=== PATIENT | female | born 1990 | race Caucasian/White ===

== ENCOUNTER 2023-03-28 23:13 | Emergency (ER) | payer BC ==
[~2023-03-28] VITALS: Ht 165.1 cm; Wt 65.8 kg
[2023-03-28 23:50] VITALS: BP 129/85
--- NOTE | 2023-03-28 23:50 | NUR ---
C/O right index finger injury from closing car door on it, a/o x 4. on room air. Placed comfortably on bed.
--- NOTE | 2023-03-29 02:17 | NUR ---
Patient discharged to home in stable condition. Written and verbal after care instructions given. Patient verbalizes understanding of instruction.
== END 2023-03-29 02:17 | disposition home or self-care (01) ==
LOC: ER 23:15
DX: S61.210A Laceration without foreign body of right index finger without damage to nail, initial encounter (principal); W22.8XXA Striking against or struck by other objects, initial encounter; Y93.89 Activity, other specified; Y92.89 Other specified places as the place of occurrence of the external cause; Y99.8 Other external cause status
CPT/HCPCS: 73130-TC